=== PATIENT | female | born 1965 | race Caucasian/White ===

== ENCOUNTER 2020-04-18 13:10 | Outpatient (CLI) | payer OTHER, SELFPAY ==
--- NOTE | ~2020-04-18 | MM_ITS ---
EXAMINATION: MM screening jessenia BI w wilberto HISTORY: Screening mammogram TECHNIQUE: Craniocaudal and mediolateral oblique 3-D tomosynthesis images were obtained and synthetic 2-D images were generated. CAD analysis was submitted and interpreted. COMPARISON: Comparison to multiple prior studies sequentially, with oldest reviewed study dated 12/2011. BREAST PARENCHYMAL COMPOSITION: There are scattered areas of fibroglandular density. FINDINGS: There is no evidence of suspicious mass, calcification, or architectural distortion to sugg est malignancy in either breast. There has been no suspicious interval change. IMPRESSION: 1. No mammographic evidence of malignancy. 2. Recommend routine screening mammography in one year. BI-RADS Category 1: Negative Reviewed, dictated and finalized at location A.
--- NOTE | ~2020-04-18 | CT_ITS ---
EXAMINATION: CT sinus wo con DATE: 04/18/2020 14:34 INDICATION: Pansinusitis. TECHNIQUE: Computed tomography (CT) of the paranasal sinuses was performed without intravenous contra st. Iterative reconstruction technique was employed. The dose-length product was 285.18 mGy-cm. COMPARISON: None FINDINGS: The frontal sinuses are clear. There is mild mucosal thickening in the right ethmoid sinuse s. The sphenoid sinuses and maxillary sinuses are clear. There is leftward deviation of the nasal sep sushila with a left lateral spur. There is a Anushka cell on the left. The ostiomeatal units are widely pa tent. Right middle turbinate is paradoxical. IMPRESSION: 1. Mild mucosal thickening in the right ethmoid sinuses. 2. Leftward deviation of the nasal septum. Reviewed, dictated and finalized at location A.
== END 2020-04-18 13:11 | disposition home or self-care (01) ==
PROVIDERS: PCP Family Medicine; Visit Provider Obstetrics & Gynecology
DX: J01.40 Acute pansinusitis, unspecified (principal); J34.89 Other specified disorders of nose and nasal sinuses; Z12.31 Encounter for screening mammogram for malignant neoplasm of breast; J34.2 Deviated nasal septum
CPT/HCPCS: 70486; 77063; 77067

== ENCOUNTER 2024-01-26 16:27 | Outpatient (CLI) | payer OTHER, SELFPAY ==
--- NOTE | ~2024-01-26 | XR_ITS ---
XR knee RT min 4V DATE: 01/26/2024 16:52 INDICATION: Right knee primary osteoarthritis TECHNIQUE: [place] and standing AP, PA and lateral views COMPARISON: None FINDINGS: No fracture or dislocation or joint effusion. No periosteal reaction or bone destruction. There is mild chondrocalcinosis at the medial and lateral compartments. Mild loss of height of medial compartment joint space. Joint spaces otherwise appear preserved. No radiopaque intra-articular loos e body is noted. IMPRESSION: Chondrocalcinosis Mild osteoarthritis Reviewed, dictated and finalized at location L.
--- NOTE | ~2024-01-26 | XR_ITS ---
XR knee LT min 4V DATE: 01/26/2024 16:52 INDICATION: Left knee osteoarthritis TECHNIQUE: [place] and standing AP, PA and lateral views COMPARISON: None FINDINGS: Mild superior pole patellar enthesopathy. There is chondrocalcinosis at all 3 compartments. There is mild loss of height of medial compartment joint space. There is mild periarticular spurring at the 3 compartments. No fracture or dislocation, periosteal reaction or bone destruction or joint effusion is evident. IMPRESSION: Chondrocalcinosis Mild tricompartment osteoarthritis, including mild loss of height of medial compartment joint space Reviewed, dictated and finalized at location L. IMPRESSION: Chondrocalcinosis Mild tricompartment osteoarthritis, including mild loss of height of medial com partment joint space
== END 2024-01-26 16:28 | disposition home or self-care (01) ==
PROVIDERS: PCP Internal Medicine; Visit Provider Orthopaedic Surgery
DX: M17.0 Bilateral primary osteoarthritis of knee (principal); M11.262 Other chondrocalcinosis, left knee; M11.261 Other chondrocalcinosis, right knee; R29.890 Loss of height
CPT/HCPCS: 73564

== ENCOUNTER 2024-09-07 10:29 | Outpatient (CLI) | payer OTHER, SELFPAY ==
--- NOTE | ~2024-09-07 | XR_ITS ---
Left Knee Technique: AP, lateral, and sunrise views were obtained. Clinical History: Osteoarthritis Findings: No fracture or dislocation is seen. Osseous alignment is anatomic. Joint spaces are preserv ed without degenerative or erosive change. Soft tissues are unremarkable. No joint effusion is seen. Impression: Unremarkable left knee radiographs. Reviewed, dictated and finalized at location . Impression: Unremarkable left knee radiographs.
--- NOTE | ~2024-09-07 | XR_ITS ---
Right Knee Technique: AP, lateral, and sunrise views were obtained. Clinical History: Osteoarthritis Findings: No fracture or dislocation is seen. Osseous alignment is anatomic. Joint spaces are preserv ed without degenerative or erosive change. Soft tissues are unremarkable. No joint effusion is seen. Impression: Unremarkable right knee radiographs. Reviewed, dictated and finalized at location . Impression: Unremarkable right knee radiographs.
== END 2024-09-07 10:30 | disposition home or self-care (01) ==
PROVIDERS: PCP Internal Medicine; Visit Provider Orthopaedic Surgery
DX: M17.11 Unilateral primary osteoarthritis, right knee (principal); M17.12 Unilateral primary osteoarthritis, left knee
CPT/HCPCS: 73564

== ENCOUNTER 2025-09-06 09:01 | Outpatient (CLI) | payer OTHER, SELFPAY ==
--- NOTE | ~2025-09-06 | XR_ITS ---
EXAMINATION: XR knee LT min 4V, 09/06/2025 9:20 CDT HISTORY: M17.12 - Unilateral primary osteoarthritis, left knee COMPARISON: No comparisons available. Findings: No acute fracture or malalignment. No significant degenerative changes. Soft tissues unremarkable. Impression: No acute fracture or malalignment. Reviewed, dictated and finalized at location P. Impression: No acute fracture or malalignment.
--- NOTE | ~2025-09-06 | XR_ITS ---
EXAMINATION: XR knee RT min 4V, 09/06/2025 9:20 CDT HISTORY: M17.11 - Unilateral primary osteoarthritis, right knee COMPARISON: No comparisons available. Findings: No acute fracture or malalignment. No significant degenerative changes. Soft tissues unremarkable. Impression: No acute fracture or malalignment. Reviewed, dictated and finalized at location P. Impression: No acute fracture or malalignment.
--- OUTSIDE RECORDS SUMMARY | 2025-09-06 09:44 | XMS_ITS | Clinical Summary ---
Author Organization [facility] [place] [facility] Address [address] [place] [address] Care Team Providers Care Research Affiliate Name Role Phone Masha Jarvis MD Primary Care Provider Allergies Active Allergy Reactions Criticality Noted Date Comments Codeine Stomach upset Low Medications multivitamin capsule Take 1 capsule by mouth daily Active albuterol HFA (ProAir HFA) 90 mcg/actuation inhaler Inhale 2 puffs every 4 (four) hours as needed for wheezing or shortness of breath 1 each 4 3 Active estradioL (VAGIFEM) 10 mcg tabletIndicatio ns:Vaginal atrophy Insert 1 tablet (10 mcg total) into the vagina 2 (two) times a week 24 tablet 3 5 Active clobetasoL (TEMOVATE) 0.05 % ointmentIndicat ions:Vulvar itching Apply topically 2 (two) times a day Apply to area of concern twice daily for 2 weeks then daily as needed. 30 g 3 5 Active fluticasone propion-salmete roL (Advair Diskus) 250-50 mcg/dose diskus inhaler Inhale 1 puff 2 (two) times a day Rinse mouth with water after use. Do not swallow. 180 each 3 5 Active loratadine/pseu doephedrine (CLARITIN-D 12 HOUR ORAL) Take by mouth once a week Active esomeprazole DR (NexIUM) 20 mg capsule Take 1 capsule (20 mg total) by mouth daily before breakfast Active Active Problems Problem Noted Date Diagnosed Date Benign paroxysmal vertigo of left ear 06/26/2025 Sensorineural hearing loss (SNHL) of both ears 0 06/26/2025 Encounters Date Type Department Care Team Description 07/27/2025 4:15 PM CDT Telemedicine [facility] Otolaryngology [address] [place] [phone] Rocky Hayward II, MD Benign paroxysmal vertigo of left ear (Primary Dx) 07/14/2025 Telephone [facility] [place] [facility] [address] [place] [phone] Noemi Pabon 07/07/2025 8:00 AM CDT Procedure visit [facility] Otolaryngology [address] [place] [phone] Noemi Pabon Benign paroxysmal positional vertigo of right ear (Primary Dx); Dizziness and giddiness 06/26/2025 10:00 AM CDT Office Visit [facility] [address] [place] [phone] Rocky Hayward II, MD Benign paroxysmal vertigo of left ear (Primary Dx); Sensorineural hearing loss (SNHL) of both ears 06/26/2025 9:30 AM CDT Procedure visit [facility] Otolaryngology [address] [place] [phone] Noemi Pabon Dizziness and giddiness (Primary Dx); Sensorineural hearing loss (SNHL) of both ears from Last 3 Months Immunizations Immunization Administration Dates Next Due Influenza, Unspecified 03/15/2025(Deferr ed: Patient Refused),03/15/2025(Deferred: Patient Refused),11/18/2023(Deferred: Patient Refused),08/20/2023(Deferred: Patient Refused),11/05/2022(Deferred: Patient Refused),08/20/2022(Deferred: Patient Refused),08/11/2022(Deferred: Patient Refused),09/09/2021(Deferred: Patient Refused) Moderna SARS-CoV-2 Monovalen t Vaccination (12+ YRS) 09/02/2021 Surgical History Surgery Date Site/Laterality Comments TUBAL LIGATION LASIK 11/09/2016 - 11/08/2017 Medical History Medical History Date Comments Gastroesophageal reflux disease GERD Chronic sinusitis Allergies Dizziness Ear problems Family History Medical History Relation Name Comments Cancer Father Ramiro Esophageal cancer Father Ramiro Cancer, es ophageal; Hypertension Father Ramiro Breast cancer Mother Ness Cancer, breast ; Cancer Mother Ness Colon cancer Mother Ness Cancer, colon; Diabetes Son Angel Relation Name Status Comments Father Ramiro Mother Ness Son Angel Social History Tobacco Use Types Packs/Day Years Used Date Smoking Tobacco: Never Alcohol Use Standard Drinks/Week Comments Yes 0 (1 standard drink = 0.6 oz pur e alcohol) AUDIT-C Answer Date Recorded Q1: How often do you have a drink containing alc ohol? Never 10/30/2021 Average Number of Drinks Not on file 021 Frequency of Binge Drinking Not on file 10/10 PHQ-2 Answer Date Recorded PHQ-2 Total Score (If total score is 3 or more points, staff should administer the PHQ-9) 0 04/25/2025 Personal Safety Answer Date Recorded Have you ever been in or are you currently in a harmful physical or emotional relationship or is someone making you feel afraid or unsafe? Denies 04/02/2025 Comments No Sex and Gender Information Value Date Recorded Sex Assigned at Not on file Legal Sex Female 3:26 AM SOFTWARE ARCHITECT Gender Identity Female 04/22/2021 1:12 PM CDT Sexual Orientation Straight 04/22/2021 1: 12 PM CDT Obstetrics History Para Term AB IAB SAB Ectopic Multiple Livin g Live Births 3 3 3 Date Outcome GA Total Labor Labor/2nd/3rd Weight Sex Type Anes PTL [place] A1 A5 Name Clin Term Term Term Comments Last Filed Vital Signs Vital Sign Reading Time Taken Comments Blood Pressure 124/70 04/25/2025 2:20 PM CDT Pulse 77 04/25/2025 2:20 PM CDT Temperature 36.8 C (98.2 F) 04/25/2025 2:20 PM CDT Respiratory Rate 18 06/26/2025 9:53 AM CDT Oxygen Saturation 98% 04/25/2025 2:20 PM CDT Inhaled Oxygen Concentration - - Weight 99.3 kg (219 lb) 07/27/2025 12:58 PM CDT Height 165.1 cm (5' 5) 07/27/2025 12:58 PM CDT Body Mass Index 36.44 07/27/2025 12:58 PM CDT Plan of Treatment Health Maintenance Due Date Last Done Comments Hepatitis C Screening 1966 DTaP/Tdap/Td Vaccine (1 - Tdap) 1977 Hepatitis B Screening 1984 Zoster Vaccine (1 of 2) 2016 Covid-19 Vaccine (4 - 2024- season) 2025 10/30/2021, 10/02/2021, 09/02/2021 Influenza Vaccine (#1) 2025 Regular Well Visit/Exam 18-64 11/30/2025 11/30/2024, 11/23/2024, 11/18/2023, Additional history exists Breast Cancer Screening-Mammogram 01/27/2026 01/27/2025, 01/19/2024, 11/26/2022, Additional history exists Depression Screening 04/25/2026 04/25/2025, 11/23/2024, 11/18/2023, Additional history exists Colon Cancer Screening-Colonoscopy 07/23/2027 07/23/2022 Cervical Cancer Screening 11/30/20292024, 11/30/2024, 04/04/2020 Colon Cancer Screening-CT Colonography Discontinued 07/23/2022 Colon Cancer Screening-DNA Stool Discontinued 07/23/2022 Colon Cancer Screening-FIT Discontinued 07/23/2022 Colon Cancer Screening-Sigmoidoscopy Discontinued 07/23/2022 Pneumococcal vaccine <65 Aged Out No longer eligible based on patient's age to complete this topic Procedures Procedure Name Priority Date/Time Associated Diagnosis Comments SCREENING MAMMOGRAM BILATERAL W BRIAN Schedule Routine, Read Routine (OP Routine) 01/27/2025 1:03 PM CDT Encounter for screening mammogram for malignant neoplasm of breast HIGH RISK HPV DNA DETECTION WITH GENOTYPING Routine 11/30/2024 11:35 AM SOFTWARE ARCHITECT Well woman exam COLONOSCOPY Routine 07/23/2022 from Last 3 Months or Most Recently Relevant to Health Maintenance Results * Screening Mammogram Bilateral W Brian (01/27/2025 1:03 PM CDT) Anatomical Region Laterality Modality Breast Bilateral Mammography Impressions 01/27/2025 1:14 PM CDT BI-RADS ATLAS category (overall): 1 - Negative There is no mammographic evidence of malignancy. A 1 year screening mammogram is recommended. The patient has been or will be contacted. We recommend annual screening mammography for women at average risk of breast cancer beginning at age 40, based on guidelines of the [employer] [employer] (ACR Practice Parameter for the Performance of Screening and Diagnostic Mammography) and [place]. For women with and elevated risk of breast cancer, please refer to the ACR Practice Parameter for specific screening recommendations. The patient will be entered into a reminder system with a target due date of 1 year for her next screening exam. Narrative 01/27/2025 1:14 PM CDT Screening Mammogram Bilateral W Brian: 01/27/25 The study was acquired using full field digital technology and interpreted from soft copy. 2D digital mammographic views, as well as 3D digital tomosynthesis were performed in the CC and MLO projections. CLINICAL: Encounter for screening mammogram for malignant neoplasm of breast. No relevant medical history has been documented for this patient. History of breast cancer in Mother. COMPARISONS: 01/19/2024 Screening Mammogram Bilateral W Brian 11/26/2022 Screening Mammogram Bilateral W Brian 07/18/2021 Screening Mammogram Bilateral W Brian BREAST TISSUE: The breasts are almost entirely fatty. FINDINGS: No suspicious masses, suspicious calcifications, or other suspicious findings are seen within either breast. There has been no suspicious change. us Benito Roca MD IMG MAMMO PROCEDURES Fi nal Result * High Risk HPV DNA Detection with Genotyping (Molecular component) (11/30/2024 11:35 AM SOFTWARE ARCHITECT) HPV HR 16 Not Detected Not Detected [facility] Comment:Testing performed by : [facility], [address] [place]., [address] HPV HR 18 Not Detected Not Detected [facility] Comment:Testing performed by : [facility], [address] [place]., [address] HPV HR Non 16/18 Not Detected Not Detected [facility] Comment: Interpretive Data Nucleic acid amplification for detection of high-risk Human Papilloma virus (HPV) is performed by the Cristofer Chastity 6800 HPV test. This assay specifically detects HPV-16 and HPV-18 genotypes. The following HPV genotypes are detected as high-risk HPV: HPV-31, 33, 35, ,39, 45, 51, 52, 56, 58, 59, 66, and 68. This assay has been approved by the [place] Food and Drug Administration for detection of HPV in cervical specimens collected by a physician using an endocervical brush/spatula or cervical broom and placed in the ThinPrep Pap Test PreservCyt collection containers. The performance characteristics of this test have been verified by the [facility] laboratory. Correlate with separately reported cytology results, as applicable. Interpretive data last revised 23 Testing performed by: [facility], [address] [place]., [address] Endocervical 11/30/2024 11:3 5 AM SOFTWARE ARCHITECT 11/30/2024 11:32 PM SOFTWARE ARCHITECT Narrative [facility] - 12/01/2024 7:24 PM SOFTWARE ARCHITECT Clinical history and diagnosis->screen Number of vials->1 Testing type->Screening Last menstrual period (date if known)->PM Menstrual status->Postmenopausal Benito Roca MD LAB BODY FLUIDS AND STO OLS ORDERABLES Final Result [facility] [id number] [facility] Department [place] [address] [facility] * Colonoscopy (07/23/2022) Anatomical Region Laterality Modality Other 07/23/2022 us Historical Provider ENDOSCOPY PROCEDURES Saray l Result from Last 3 Months or Most Recently Relevant to Health Maintenance Insurance [employer] Member Subscriber Plan / Payer (Ef fective 2020-Present) Name:Charity Kellogg Relation to Subscriber:Self Name:Charity Kellogg Payer ID:[id number] (NAIC) Type:[employer] HMO/PPO Address: [place] [phone] [employer] PL[employer] Care Teams Research Affiliate Relationship Specialty Start Date End Date Masha Jarvis MD PCP - General Internal Medicine 10/30/21
== END 2025-09-06 09:02 | disposition home or self-care (01) ==
PROVIDERS: PCP Internal Medicine; Visit Provider Orthopaedic Surgery
DX: M17.11 Unilateral primary osteoarthritis, right knee (principal); M17.12 Unilateral primary osteoarthritis, left knee
CPT/HCPCS: 73564